=== PATIENT | male | born 2000 | race African-American/Black ===

== ENCOUNTER 2025-08-10 17:37 | Inpatient (IN) | payer OTHER ==
[~2025-08-10] VITALS: Ht 177.8 cm; Wt 92.7 kg
[2025-08-10 18:29] LABS: PLATELET COUNT, AUTOMATED 297 10^3/uL (150-450)
[2025-08-10 18:47] LABS: AMPHETAMINES LEVEL URINE NEGATIVE (NEGATIVE); BARBITURATES URINE NEGATIVE (NEGATIVE)
[2025-08-10 18:48] LABS: BENZODIAZEPINES URINE NEGATIVE (NEGATIVE); CANNABINOIDS URINE NEGATIVE (NEGATIVE); COCAINE METABOLITE URINE NEGATIVE (NEGATIVE); METHADONE URINE NEGATIVE (NEGATIVE); OPIATES URINE NEGATIVE (NEGATIVE); PHENCYCLIDINE URINE NEGATIVE (NEGATIVE)
[2025-08-10 18:50] LABS: ETHYL ALCOHOL (ETHANOL) < 0.003 % (0.000-0.010)
[2025-08-10 18:51] LABS: SALICYLATE LEVEL < 3.0 MG/DL (<30)
[2025-08-10 18:52] LABS: ALT/SGPT 31 U/L (7.0-40); AST/SGOT 30 U/L (<34); CALCIUM LEVEL 9.2 MG/DL (8.5-10.1); CARBON DIOXIDE LEVEL 28 MMOL/L (20-31); CHLORIDE LEVEL 103 MMOL/L (98-107); CREATININE FOR GFR 1.33 MG/DL (0.70-1.30); GLOMERULAR FILTRATION RATE 77.0 (>60); POTASSIUM SERUM 4.2 MMOL/L (3.5-5.1); SODIUM LEVEL 140 MMOL/L (136-145)
[2025-08-10] MEDS ORDERED: HOME MED LIST COMPLETE! XX SCH (21:10)
[2025-08-11] MEDS ORDERED: MOM 30 ML SUSPENSION UDC PO PRN (01:45)
[2025-08-11] MEDS ORDERED: IBUPROFEN 400 MG TAB PO PRN (01:45)
[2025-08-11] MEDS ORDERED: ACETAMINOPHEN 325 MG TAB PO PRN (01:45)
[2025-08-11] MEDS ORDERED: traZODone 50 MG TAB PO PRN (01:45)
[2025-08-11] MEDS ORDERED: MAALOX 30 ML SUSP *UDC PO PRN (01:45)
[2025-08-11 03:20] VITALS: BP 139/90; TEMP 97.7; O2SAT 100
[2025-08-11 14:58] VITALS: BP 143/62; TEMP 98.4; O2SAT 99
[2025-08-12 05:54] VITALS: BP 135/78; TEMP 98.2; O2SAT 100
[2025-08-12 14:39] VITALS: BP 125/60; TEMP 98.3; O2SAT 100
[2025-08-13 06:25] VITALS: BP 112/74; TEMP 97.2; O2SAT 100
[2025-08-13 15:20] VITALS: BP 140/77; TEMP 98.4; O2SAT 100
[2025-08-14 06:28] VITALS: BP 121/79; TEMP 98.2; O2SAT 99
== END 2025-08-14 10:34 | disposition home or self-care (01) | DRG 881 ==
LOC: M ED 17:37 → M ED INP 08-11 01:42 → M PSY 08-11 02:20
PROVIDERS: ADMIT Psychiatry & Neurology Neurology; ATTEND Psychiatry & Neurology Psychiatry
DX: F43.21 Adjustment disorder with depressed mood (principal); R45.851 Suicidal ideations; Z63.5 Disruption of family by separation and divorce; Z81.8 Family history of other mental and behavioral disorders; F17.290 Nicotine dependence, other tobacco product, uncomplicated; Z91.82 Personal history of military deployment